=== PATIENT | female | born 1980 ===

== ENCOUNTER 2017-02-23 22:39 | Emergency (ER) | payer MEDICAID, MEDICARE, OTHER ==
[2017-02-23 23:00] VITALS: PULSE 97
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
[2017-02-24] MEDS ORDERED: Acetaminophen 160 mg/5 ml UD GT ONE (00:19)
[2017-02-24 00:33] LABS: RBC URINE 114 /hpf (0-3); URINE BILIRUBIN NEGATIVE (NEGATIVE); URINE BLOOD 1+ (NEGATIVE); URINE COLOR Amber (YELLOW); URINE GLUCOSE (UA) NORMAL (Normal); URINE KETONE NEGATIVE (NEGATIVE); URINE LEUKOCYTE ESTERASE NEG Leu/uL (Negative); URINE PROTEIN 1+ mg/dL (NEGATIVE); URINE UROBILINOGEN NORMAL mg/dL (0.2-1.0); WBC URINE 3 /hpf (0-5)
[2017-02-24 01:57] VITALS: BP 140/80; RESP 16; TEMP 99; O2SAT 97
== END 2017-02-24 01:25 ==
LOC: C.ER 22:39
DX: Z04.41 Encounter for examination and observation following alleged adult rape (principal)

== ENCOUNTER 2017-03-04 07:27 | Emergency (ER) | payer MEDICARE, OTHER | END 2017-03-04 14:08 | LOC: C.ER 07:27 | DX: G40.909 Epilepsy, unspecified, not intractable, without status epilepticus (principal) | CPT/HCPCS: 70450; 71010; 80053; 80299; 81001; 82550; 82553; 82948; 84484; 84703; 85025; 87040; 87086; 93005; 96361; 96372; 96374; 96375; 99285; J1953; J2060; J7040 ==

== ENCOUNTER 2017-03-15 19:24 | Emergency (ER) | payer MEDICARE, MEDICAID ==
[2017-03-15 19:53] VITALS: TEMP 99.8
[2017-03-15] MEDS ORDERED: Sodium Chloride 0.9% 500 ML IV ONE ×2 (20:07→23:22)
[2017-03-15 20:16] LABS: BASO % 0.2 % (0.0-2.0); HEMATOCRIT 37.3 % (34.0-47.0); LYMPH % 7.8 % (20.0-40.0); MEAN CELL VOLUME 59.6 fL (81.0-99.0); MEAN CORPUSCULAR HEMOGLOBIN 18.9 pg (27.0-31.0); MEAN CORPUSCULAR HGB CONC 31.7 g/dL (33.0-37.0); MEAN PLATELET VOLUME 8.9 fL (7.2-11.7); MONO # 0.3 K/uL (0.0-0.8); PLATELET COUNT 240 K/uL (130-400); RED CELL DISTRIBUTION WIDTH 15.9 % (11.5-14.5)
[2017-03-15 20:21] LABS: WHITE BLOOD COUNT 12.3 K/uL (4.8-10.8)
[2017-03-15 20:26] LABS: CHLORIDE 101 mmol/L (98-107); SODIUM 140 mmol/L (132-148)
[2017-03-15 20:27] LABS: POTASSIUM 4.4 mmol/L (3.6-5.2)
[2017-03-15 20:28] LABS: GFR AFRICAN-AMERICAN > 60
[2017-03-15 20:29] LABS: ALB/GLOB RATIO 1.1 (1.0-2.1); ALKALINE PHOSPHATASE 71 U/L (38-126); ALT/SGPT 25 U/L (9-52); AST/SGOT 38 U/L (14-36); BILIRUBIN,TOTAL 0.8 mg/dL (0.2-1.3); BLOOD UREA NITROGEN 9 mg/dL (7-17); CALCIUM 9.6 mg/dl (8.6-10.4); CARBON DIOXIDE 22 mmol/L (22-30); GLUCOSE,RANDOM 113 mg/dL (65-105); TOTAL PROTEIN 8.7 g/dL (6.3-8.3)
--- NOTE | 2017-03-15 20:33 | C.PDOC ---
History Of Present Illness 36 year old female sent from care home for evaluation of 2 episodes of vomiting after being fed through her peg tube. Patient has a Hx of an anoxic brain injury; she is bed bound and nonverbal at baseline. Hx is per EMS and care home report. Time Seen by Provider: 03/15/17 19:28 Chief Complaint (Nursing): GI Problem History Per: EMS History/Exam Limitations: physical impairment Current Symptoms Are (Timing): Still Present Context: Food Quality Of Discomfort: Unable To Describe Associated Symptoms: Vomiting Exacerbating Factors: Food Additional History Per: Alf Abnormal Vaginal Bleeding: No Past Medical History Reviewed: Historical Data, Nursing Documentation, Vital Signs Vital Signs: Last Vital Signs Temp 99.8 F H 03/15/17 19:41 Pulse 125 H 03/16/17 00:38 Resp 14 03/16/17 00:38 BP 134/78 03/16/17 00:38 Pulse Ox 95 03/16/17 00:38 - Medical History PMH: Anemia, COPD, HTN, Pneumonia, Seizures Surgical History: Endoscopy - [facility] Procedures OTHER GASTROSCOPY (04/12/14) PARENTERAL INFUSION OF CONCENTRATED NUT. SUBSTANCE (04/12/14) REPLACE GASTROSTOMY TUBE (04/12/14) Family History: States: No Known Family Hx - Social History Hx Tobacco Use: No Hx Alcohol Use: No Hx Substance Use: No - Immunization History Hx Tetanus Toxoid Vaccination: No Hx Influenza Vaccination: Yes Hx Pneumococcal Vaccination: No Review Of Systems Review Of Systems: ROS cannot be obtained secondary to pt's inabilty to answer questions. Physical Exam - Physical Exam Appears: Non-toxic, No Acute Distress, Other (Awake, Alert, Comfortable) Skin: Normal Color, Warm, Dry Head: Normacephalic Oral Mucosa: Moist Cardiovascular: Rhythm Regular (Tachycardic), No Murmur Respiratory: Normal Breath Sounds, No Rales, No Rhonchi, No Wheezing Gastrointestinal/Abdominal: Bowel Sounds, Soft, No Tenderness, No Distention, Other (LUQ peg tube in place , + epigastric gurgle auscultated when saline was pushed through peg tube.) Neurological/Psych: Other (awake, alert) ED Course And Treatment - Laboratory Results Result Diagrams: 03/15/17 20:10 03/15/17 20:10 O2 Sat by Pulse Oximetry: 98 (Room air) Pulse Ox Interpretation: Normal - Radiology CXR: Interpreted by Me, Viewed By Me CXR Interpretation: Yes: No Acute Disease. No: Infiltrates Progress Note: Blood work and urinalysis ordered and reviewed. Patient given IV NS bolus. 9:30pm- Patient's sister arrived in ED, states the patient's movements are typical of her seizures. IV ativan 2mg given. Nurse called NH, they state they held nighttime seizure meds due to 2 episodes of vomiting. Lamictal and Keppra ordered to be given via peg, and levels ordered (send outs) . 12:05AM- Patient sleeping comfortably, no repeat seizures and no episodes of vomiting in ED. Sister in agreement that patient appears improved, and is comfortable with her being discharged home. PEG is functioning. UA (-) for UTI. Blood work does show mild leukocytosis, but this is likely due to seizures. CXR (-) for pneumonia. Patient given IV N fluids, IV ativan and doses of her seizure medications. She appears improved, and vitals are also improved - will discharge back to [facility]. Reevaluation Time: 00:05 Reassessment Condition: Improved Disposition Counseled Patient/Family Regarding: Studies Performed, Diagnosis, Need For Followup - Disposition Referrals: Grant Soni MD [Staff Provider] - Disposition: Trans to Other Acute Care Hosp Disposition Time: 00:10 Condition: STABLE Instructions: Epilepsy (ED) Forms: [facility] (Icelandic), General Discharge Instructions Print Language: CROATIAN - Clinical Impression Clinical Impression: Evaluation by medical service required, Seizure disorder - Scribe Statement The provider has reviewed the documentation as recorded by the Scribfranko Zhou All medical record entries made by the Scribe were at my direction and personally dictated by me. I have reviewed the chart and agree that the record accurately reflects my personal performance of the history, physical exam, medical decision making, and the department course for this patient. I have also personally directed, reviewed, and agree with the discharge instructions and disposition.
[2017-03-15 20:41] LABS: NEUTROPHIL 93 % (50-75); TOTAL CELLS COUNTED 100
[2017-03-15 20:43] LABS: LARGE PLATELETS PRESENT
[2017-03-15 20:52] LABS: RBC URINE 17 /hpf (0-3); URINE BILIRUBIN NEGATIVE (NEGATIVE); URINE BLOOD NEGATIVE (NEGATIVE); URINE COLOR Yellow (YELLOW); URINE GLUCOSE (UA) NORMAL (Normal); URINE KETONE TRACE mg/dL (NEGATIVE); URINE LEUKOCYTE ESTERASE NEG Leu/uL (Negative); URINE PROTEIN 1+ mg/dL (NEGATIVE); URINE UROBILINOGEN NORMAL mg/dL (0.2-1.0)
[2017-03-15] MEDS ORDERED: Sodium Chloride 0.9% 1,000 ML IV ONE (21:37)
[2017-03-15] MEDS ORDERED: levETIRAcetam 100 mg/ml (5ml) Oral Syringe PEG STA (21:57)
[2017-03-16 00:41] VITALS: BP 134/78; PULSE 125; RESP 14
--- NOTE | 2017-03-16 08:25 | RAD ---
HISTORY: vomiting COMPARISON: Chest x-ray performed 03/04/17 TECHNIQUE: Chest, one view. FINDINGS: Examination limited by habitus. LUNGS: Mild to moderate pulmonary venous congestion. No focal consolidation. Please note that chest x-ray has limited sensitivity for the detection of pulmonary masses. PLEURA: No significant pleural effusion identified. No definite pneumothorax . CARDIOVASCULAR: The cardiomediastinal silhouette appears within normal limits of size. OSSEOUS STRUCTURES: Spinal stabilization rods. VISUALIZED UPPER ABDOMEN: Unremarkable. OTHER FINDINGS: None. IMPRESSION: Mild to moderate pulmonary venous congestion.
[2017-03-20 16:17] VITALS: O2SAT 98
== END 2017-03-16 01:17 | disposition short-term general hospital (02) ==
LOC: C.ER 19:24
DX: G40.909 Epilepsy, unspecified, not intractable, without status epilepticus (principal); I10 Essential (primary) hypertension; Z93.1 Gastrostomy status
CPT/HCPCS: 71010; 80053; 80299; 81001; 82550; 82553; 83690; 83880; 84484; 85025; 87086; 96361; 96374; 96376; 99283; J2060; J7040

== ENCOUNTER 2017-03-19 08:19 | Emergency (ER) | payer MEDICARE, MEDICAID ==
[2017-03-19 08:37] VITALS: O2SAT 100
--- NOTE | 2017-03-19 08:43 | C.PDOC ---
History Of Present Illness COLE DUE TO CLINICAL CONDITION 36 Y/O FEMALE SENT FROM [facility] FOR RECURRENT SEIZURE. UNKNOWN TIME. PER NH, LASTING 25 MINS. HISTORY ANOXIC BRAIN INJURY, WITH PRIOR ER EVALS FOR BREAKTHROUGH SEIZURES. ON ARRIVAL, PT AWAKE, ALERT, NO ACTIVE SEIZURE, NO ACUTE RESPIRATORY DISTRESS. PRIOR RECORDS REVIEWED: SEEN IN THIS ER ON 03/15 FOR PEG TUBE EVALUATION, BEDBOUND AND NONVERBAL AT BASELINE EXAM AWAKE, ALERT, RESPONDS TO VOICE CHRONIC CONTRACTURES h/o anoxic brain injury & seizure disorder History Per: Other (INTERMEDIATE) History/Exam Limitations: clinical condition Length Of Seizures (Duration): Unknown Post-ictal Period: No Past Medical History Reviewed: Historical Data, Nursing Documentation, Vital Signs Vital Signs: Last Vital Signs Temp 100.0 F H 03/19/17 08:40 Pulse 95 H 03/19/17 08:36 Resp 20 03/19/17 08:36 BP 123/67 03/19/17 08:36 Pulse Ox 100 03/19/17 09:05 - Medical History PMH: Anemia, COPD, HTN, Pneumonia, Seizures Surgical History: Endoscopy - [facility] Procedures OTHER GASTROSCOPY (04/12/14) PARENTERAL INFUSION OF CONCENTRATED NUT. SUBSTANCE (04/12/14) REPLACE GASTROSTOMY TUBE (04/12/14) Family History: States: Unknown Family Hx - Social History Hx Tobacco Use: No Hx Alcohol Use: No Hx Substance Use: No - Immunization History Hx Tetanus Toxoid Vaccination: No Hx Influenza Vaccination: Yes Hx Pneumococcal Vaccination: No Review Of Systems Review Of Systems: ROS cannot be obtained secondary to pt's inabilty to answer questions. Physical Exam - Physical Exam Appears: Non-toxic, Other (AWAKE, ALERT, CHRONIC CONTRACTURES) Skin: Warm, Dry Head: Atraumatic, Normacephalic Chest: Symmetrical Cardiovascular: Rhythm Regular Respiratory: Normal Breath Sounds, No Rales, No Rhonchi, No Wheezing Gastrointestinal/Abdominal: Soft, No Tenderness, No Guarding, No Rebound Back: Normal Inspection Extremity: Normal ROM, Capillary Refill (< 2 SEC) Neurological/Psych: Other (RESPONDS TO VOICE) ED Course And Treatment - Laboratory Results Result Diagrams: 03/19/17 09:11 03/19/17 09:11 O2 Sat by Pulse Oximetry: 100 (RA) Pulse Ox Interpretation: Normal - Radiology CXR: Viewed By Or CXR Interpretation: Yes: Other (UNCHANGED FROM 03/15) Progress - Re-Evaluation Re-evaluation Note: 03/19/17 08:47 LABS, CXR 03/19/17 09:05 EXAM [facility] APPEARS COMFORTABLE, INTERACTING W STAFF 03/19/17 10:59 EXAM [facility] PRIOR. VSS. NO OBS SZ IN ER - Data Reviewed Data Reviewed: Lab, Diagnostic imaging, EKG, Old records Disposition Counseled Patient/Family Regarding: Diagnosis, Need For Followup - Disposition Referrals: YOUR,PMD [Other] Disposition: HOME/ ROUTINE Disposition Time: 11:00 Condition: IMPROVED Additional Instructions: CONTINUE CURRENT SEIZURE MEDICATIONS PRESCRIBED. Instructions: Recurrent Seizures in Children (ED) - Clinical Impression Clinical Impression: Seizure disorder - Scribe Statement The provider has reviewed the documentation as recorded by the Scribfranko WILLIAMSON All medical record entries made by the Ismaelibfranko were at my direction and personally dictated by me. I have reviewed the chart and agree that the record accurately reflects my personal performance of the history, physical exam, medical decision making, and the department course for this patient. I have also personally directed, reviewed, and agree with the discharge instructions and disposition.
[2017-03-19 09:10] LABS: VENOUS BLOOD GAS BASE EXCESS 1.9 mmol/L (0.0-2.0); VENOUS BLOOD GAS PCO2 41 mmHg (40-60); VENOUS BLOOD PH 7.42 (7.32-7.43)
[2017-03-19 09:18] LABS: BASO # 0.1 K/uL (0.0-0.2); BASO % 0.5 % (0.0-2.0); EOS # 0.1 K/uL (0.0-0.7); HEMATOCRIT 37.2 % (34.0-47.0); LYMPH # 1.4 K/uL (1.0-4.3); LYMPH % 12.5 % (20.0-40.0); MEAN CELL VOLUME 60.6 fL (81.0-99.0); MEAN CORPUSCULAR HEMOGLOBIN 18.7 pg (27.0-31.0); MEAN CORPUSCULAR HGB CONC 30.9 g/dL (33.0-37.0); MEAN PLATELET VOLUME 8.8 fL (7.2-11.7); MONO # 0.5 K/uL (0.0-0.8); RED CELL DISTRIBUTION WIDTH 15.8 % (11.5-14.5); WHITE BLOOD COUNT 11.1 K/uL (4.8-10.8)
[2017-03-19 09:35] LABS: CHLORIDE 101 mmol/L (98-107); POTASSIUM 4.4 mmol/L (3.6-5.2); SODIUM 140 mmol/L (132-148)
[2017-03-19 09:38] LABS: BLOOD UREA NITROGEN 8 mg/dL (7-17); CARBON DIOXIDE 25 mmol/L (22-30); GFR AFRICAN-AMERICAN > 60; GLUCOSE,RANDOM 105 mg/dL (65-105)
[2017-03-19 09:39] LABS: CALCIUM 9.6 mg/dl (8.6-10.4)
--- NOTE | 2017-03-19 10:20 | RAD ---
HISTORY: Seizure COMPARISON: Chest x-ray performed 03/15/17 TECHNIQUE: Chest, one view. FINDINGS: Examination limited by habitus and hypoinflation. LUNGS: Vascular crowding due to hypoinflation versus mild pulmonary venous congestion. No focal consolidation. Please note that chest x-ray has limited sensitivity for the detection of pulmonary masses. PLEURA: No significant pleural effusion identified. No definite pneumothorax . CARDIOVASCULAR: Heart size appears within normal limits. OSSEOUS STRUCTURES: Spinal stabilization rods. VISUALIZED UPPER ABDOMEN: Unremarkable. OTHER FINDINGS: None. IMPRESSION: Vascular crowding due to hypoinflation versus mild pulmonary venous congestion. Correlate clinically. A message was left for Dr. Sanderson with [facility] at 03/19/17 at 10:18 a.m..
[2017-03-19 11:20] VITALS: BP 96/57; PULSE 98; RESP 17; TEMP 98.5
== END 2017-03-19 11:57 | disposition home or self-care (01) ==
LOC: C.ER 08:19
DX: G40.909 Epilepsy, unspecified, not intractable, without status epilepticus (principal); Z87.820 Personal history of traumatic brain injury

== ENCOUNTER 2017-10-21 18:53 | Emergency (ER) | payer MEDICARE, MEDICAID ==
--- NOTE | 2017-10-21 19:13 | C.PDOC ---
History Of Present Illness 36-year-old female, PMHx includes Seizures (on Lamictal and Keppra), and hypoxic brain injury at , presents to the emergency department from [facility] with complaints of generalized tonic clonic seizure prior to arrival. Patient had post-ictal loss of consciousness that lasted approximately ten minutes. Patient noted to be foaming at mouth with blood. All other Hx is limited. Patient is non-verbal at baseline. Chief Complaint (Nursing): Seizure History Per: EMS, Family History/Exam Limitations: clinical condition Past Medical History Reviewed: Historical Data, Nursing Documentation, Vital Signs Vital Signs: Last Vital Signs Temp 98.2 F 10/21/17 23:00 Pulse 98 H 10/22/17 00:06 Resp 16 10/22/17 00:06 BP 116/85 10/22/17 00:06 Pulse Ox 99 10/22/17 05:35 - Medical History PMH: Anemia, COPD, HTN, Pneumonia, Seizures Surgical History: Endoscopy - [facility] Procedures OTHER GASTROSCOPY (04/12/14) PARENTERAL INFUSION OF CONCENTRATED NUT. SUBSTANCE (04/12/14) REPLACE GASTROSTOMY TUBE (04/12/14) Family History: States: No Known Family Hx - Social History Hx Tobacco Use: No Hx Alcohol Use: No Hx Substance Use: No - Immunization History Hx Tetanus Toxoid Vaccination: No Hx Influenza Vaccination: Yes Hx Pneumococcal Vaccination: No Review Of Systems Review Of Systems: ROS cannot be obtained secondary to pt's inabilty to answer questions. Neurological: Positive for: Seizures Physical Exam - Physical Exam Appears: Non-toxic, Other (Currently awake) Skin: Warm, Dry, No Rash Head: Normacephalic Oral Mucosa: Moist Lips: Normal Appearing Chest: Symmetrical Cardiovascular: Rhythm Regular, No Murmur Respiratory: Normal Breath Sounds, No Accessory Muscle Use Extremity: No Deformity, Other (lower extremities contracted. Moving upper extremities) Neurological/Psych: Other (Non-verbal. long standing global aphasia. Limited due to hx of hypoxic brain injury) Gait: Other (Pt has bilat flexion contractures to lower extremities) ED Course And Treatment - Laboratory Results Result Diagrams: 10/21/17 19:52 10/21/17 19:52 O2 Sat by Pulse Oximetry: 99 (RA) Pulse Ox Interpretation: Normal Medical Decision Making Medical Decision Making: Impression 36y/o F comes in s/p tonic clonic seizure. Plan: * CMP * CBC * Lamotrigine, Levetiracetam * Fingerstick * Reassess and DispositionPts levels are both send outs.No seizure activity observed in the 3 hrs pt was here.Pt received 0.5 mg Ativan in the ED while awaiting labs Disposition - Disposition Referrals: [facility] [Outside] Disposition: HOME/ ROUTINE Disposition Time: 05:37 Condition: GOOD Instructions: Seizures Forms: [facility] (Albanian) Print Language: COOK ISLANDER - Clinical Impression Clinical Impression: Tonic-clonic seizure - Scribe Statement The provider has reviewed the documentation as recorded by the Scribe (Ana Billings) All medical record entries made by the Scribe were at my direction and personally dictated by me. I have reviewed the chart and agree that the record accurately reflects my personal performance of the history, physical exam, medical decision making, and the department course for this patient. I have also personally directed, reviewed, and agree with the discharge instructions and disposition.
[2017-10-21 19:58] LABS: BASO # 0.1 K/uL (0.0-0.2); BASO % 0.5 % (0.0-2.0); EOS # 0.1 K/uL (0.0-0.7); EOS % 0.5 % (0.0-4.0); HEMOGLOBIN 12.4 g/dL (11.0-16.0); LYMPH # 1.6 K/uL (1.0-4.3); LYMPH % 11.8 % (20.0-40.0); MEAN CELL VOLUME 60.1 fL (81.0-99.0); MEAN CORPUSCULAR HEMOGLOBIN 19.5 pg (27.0-31.0); MEAN CORPUSCULAR HGB CONC 32.4 g/dL (33.0-37.0); MEAN PLATELET VOLUME 8.9 fL (7.2-11.7); MONO # 0.7 K/uL (0.0-0.8); MONO % 5.3 % (0.0-10.0); NEUT # 11.3 K/uL (1.8-7.0); NEUT % 81.9 % (50.0-75.0); NRBC % 0.1 % (0.0-2.0); RBC 6.4 Mil/uL (3.80-5.20); RED CELL DISTRIBUTION WIDTH 15.1 % (11.5-14.5); WHITE BLOOD COUNT 13.8 K/uL (4.8-10.8)
[2017-10-21 20:16] LABS: ALBUMIN 4.5 g/dL (3.5-5.0); ALT/SGPT 21 U/L (9-52); AST/SGOT 23 U/L (14-36); BLOOD UREA NITROGEN 10 mg/dL (7-17); CALCIUM 9.9 mg/dl (8.6-10.4); GFR AFRICAN-AMERICAN > 60; GFR NON-AFRICAN AMERICAN > 60
[2017-10-21 23:02] VITALS: TEMP 98.2
[2017-10-22 00:08] VITALS: BP 116/85; PULSE 98; RESP 16
[2017-10-22 05:35] VITALS: O2SAT 99
== END 2017-10-22 00:08 | disposition home or self-care (01) ==
LOC: C.ER 18:53
DX: G40.409 Other generalized epilepsy and epileptic syndromes, not intractable, without status epilepticus (principal)
CPT/HCPCS: 80053; 80299; 82948; 85025; 96374; 99285; J2060

== ENCOUNTER 2018-04-29 09:06 | Emergency (ER) | payer MEDICARE, MEDICAID ==
[2018-04-29 09:17] VITALS: TEMP 97.6
[2018-04-29] MEDS ORDERED: Sodium Chloride 0.9% 1,000 ML IV ONE ×2 (09:21→12:09)
[2018-04-29 10:08] LABS: BASO # 0.1 K/uL (0.0-0.2); BASO % 0.6 % (0.0-2.0); EOS % 0.2 % (0.0-4.0); HEMOGLOBIN 12.3 g/dL (11.0-16.0); LYMPH # 1.4 K/uL (1.0-4.3); LYMPH % 13.3 % (20.0-40.0); MEAN CELL VOLUME 60.4 fL (81.0-99.0); MEAN CORPUSCULAR HEMOGLOBIN 19.2 pg (27.0-31.0); MEAN CORPUSCULAR HGB CONC 31.9 g/dL (33.0-37.0); MEAN PLATELET VOLUME 9.1 fL (7.2-11.7); MONO # 0.3 K/uL (0.0-0.8); MONO % 3.2 % (0.0-10.0); NEUT # 8.7 K/uL (1.8-7.0); NEUT % 82.7 % (50.0-75.0); RBC 6.42 Mil/uL (3.80-5.20); RED CELL DISTRIBUTION WIDTH 15.5 % (11.5-14.5); WHITE BLOOD COUNT 10.5 K/uL (4.8-10.8)
[2018-04-29] MEDS ORDERED: Sodium Chloride 0.9% 1,000 ML ONE ×2 (10:21→12:18)
--- NOTE | 2018-04-29 11:09 | C.PDOC ---
History Of Present Illness 37-year-old female sent to the emergency department from [facility] for evaluation of two reported seizure episodes witnessed by staff. Patient was given 1mg Ativan at 06:30 this morning, and Clonazepam at 12:00am via G-tube yet night. Patient has PMhx cerebral palsy, anoxic brain injury, seizure disorder, HTN, anemia, PNA . Hx limited due to clinical condition. Time Seen by Provider: 04/29/18 09:07 Chief Complaint (Nursing): Seizure History Per: EMS ([facility]) History/Exam Limitations: clinical condition Number Of Seizures: Multiple (2) Length Of Seizures (Duration): Unknown Quality Of Seizure: Focal Involving: (clonic movements of arms) Severity: Mild Past Medical History Reviewed: Historical Data, Nursing Documentation, Vital Signs Vital Signs: Last Vital Signs Temp 97.6 F 04/29/18 09:12 Pulse 130 H 04/29/18 09:12 Resp 20 04/29/18 09:12 BP 123/88 04/29/18 09:12 Pulse Ox 98 04/29/18 09:12 - Medical History PMH: Anemia, COPD, HTN, Pneumonia, Seizures Surgical History: Endoscopy - [facility] Procedures OTHER GASTROSCOPY (04/12/14) PARENTERAL INFUSION OF CONCENTRATED NUT. SUBSTANCE (04/12/14) REPLACE GASTROSTOMY TUBE (04/12/14) Family History: States: No Known Family Hx - Social History Hx Tobacco Use: No Hx Alcohol Use: No Hx Substance Use: No - Immunization History Hx Tetanus Toxoid Vaccination: No Hx Influenza Vaccination: Yes Hx Pneumococcal Vaccination: No Review Of Systems Review Of Systems: ROS cannot be obtained secondary to pt's inabilty to answer questions. Physical Exam - Physical Exam Appears: Non-toxic, No Acute Distress, Chronically Ill, Other (Awake and alert.) Skin: Normal Color, Warm, Dry Head: Atraumatic, Normacephalic Eye(s): bilateral: PERRL, Other (occasional horizontal nystagmus ) Oral Mucosa: Moist Tongue: Normal Appearing, No Bite, No Laceration Lips: Other (dry & chapped) Cardiovascular: Rhythm Regular (Tachycardic), No Murmur Respiratory: Normal Breath Sounds, No Rales, No Rhonchi, No Wheezing Gastrointestinal/Abdominal: Normal Exam, Bowel Sounds, Soft, No Tenderness, Other ((+) PEG tube) Extremity: Other (chronic contractures of upper and lower extremities bilaterally.) Neurological/Psych: Other (intermittent shaking/clonic movements of B/L UEs) ED Course And Treatment - Laboratory Results Result Diagrams: 04/29/18 10:04 04/29/18 10:52 O2 Sat by Pulse Oximetry: 98 (RA) Pulse Ox Interpretation: Normal (R) Progress Note: Bloodwork, UA ordered and reviewed. Patient given IV NS bolus x 2, IV ativan, 1 dose IV Keppra. 13:20- Patient is resting comfortably, occasional upper arm shaking but no obvious seizures. Patient's prior visits reviewed, she has been seen in ED multiple time for same complaints, is typically tachycardic. Plan to send patient back to [place] after her Keppra. Disposition - Disposition Disposition: TRANSF TO SNF Disposition Time: 13:20 Condition: STABLE Forms: [facility] (Mongolian), General Discharge Instructions Print Language: PORTUGUESE - Clinical Impression Clinical Impression: Evaluation by medical service required - Scribe Statement The provider has reviewed the documentation as recorded by the Scribe (Ana Billings) Provider Attestation: All medical record entries made by the Scribe were at my direction and personally dictated by me. I have reviewed the chart and agree that the record accurately reflects my personal performance of the history, physical exam, medical decision making, and the department course for this patient. I have also personally directed, reviewed, and agree with the discharge instructions and disposition.
[2018-04-29 11:16] LABS: ALB/GLOB RATIO 1.3 (1.0-2.1); ALBUMIN 4.5 g/dL (3.5-5.0); ALT/SGPT 29 U/L (9-52); AST/SGOT 19 U/L (14-36); BLOOD UREA NITROGEN 10 mg/dL (7-17); CALCIUM 9.6 mg/dl (8.6-10.4); GFR NON-AFRICAN AMERICAN > 60
[2018-04-29] MEDS ORDERED: levETIRAcetam 500 MG in Sodium Chloride 0.9% 100 ML IVPB STA (12:36)
[2018-04-29 14:10] VITALS: BP 126/79; PULSE 117; RESP 20; O2SAT 100
--- NOTE | 2018-04-29 14:30 | RAD ---
Date of service: 04/29/2018 HISTORY: constipoation? COMPARISON: No prior. FINDINGS: BOWEL: Normal bowel gas pattern. No evidence of obstruction. No evidence of significant retained feces. No masses or abnormal calcifications are appreciated. BONES: Humphries rods. No evidence of acute fracture. OTHER FINDINGS: None. IMPRESSION: No active disease.
--- NOTE | 2018-04-30 23:02 | CARD ---
APPROVED REPORT Date of service: 04/29/2018 EKG Measurement Heart [id number] <Conclusion> Sinus tachycardia otherwise normal EKG
== END 2018-04-29 17:15 ==
LOC: C.ER 09:06
DX: Z00.00 Encounter for general adult medical examination without abnormal findings (principal)
CPT/HCPCS: 74018; 80053; 80175; 80177; 82550; 82948; 84702; 85025; 93005; 96361; 96374; 96375; 96376; 99285; J1953; J2060; J7030